=== PATIENT | female | born 1960 | race Caucasian/White ===

== ENCOUNTER 2022-05-11 14:22 | Outpatient (CLI) | payer OTHER, SELFPAY ==
--- NOTE | 2022-05-11 14:50 | MM_ITS ---
WS: [id number] Bilateral screening 3D tomosynthesis digital mammogram, 05/11/2022 Clinical Data: SCREEN Comparison: 10/07/2018, 10/12/2014, 09/11/2008. Findings: The breast parenchymal pattern shows fibroglandular tissue. No spiculated masses or clustered calcif ications are seen. There are no secondary signs of carcinoma. MM/[id number] Impression: 1. Negative bilateral mammogram unchanged. 2. Recommend annual screening mammograms. BIRADS: 1-Negative FOLLOW UP: 1 Year Follow-up The CAD weight yardage checker was used.
== END 2022-05-11 14:23 | disposition home or self-care (01) ==
LOC: RAD 14:24
PROVIDERS: PCP Internal Medicine; Visit Provider Internal Medicine
DX: Z12.31 Encounter for screening mammogram for malignant neoplasm of breast (principal)
CPT/HCPCS: 77063; 77067